=== PATIENT | male | born 1985 | race American Indian/Alaskan Native ===

== ENCOUNTER 2016-10-09 14:50 | Emergency (ER) | payer SELFPAY ==
[2016-10-09 19:43] VITALS: BP 133/70
[2016-10-09] MEDS ORDERED: DELTASONE PO ONE (19:50)
--- NOTE | 2016-10-09 19:52 | Emergency Department Report ---
HPI - General Chief Complaint: Extremity Problem,Nontraumatic Time Seen by Provider: 10/09/16 19:44 - HPI HPI: Patient is a 31-year-old male who presents to ED complaining of left arm rash 4 days. Patient states about 4 days ago and noticed a rash on his left lower arm area while he was at work. Patient states because of work he has not been able to come in to get it checked. Patient states rash is itching has gotten worse over the next couple days. Patient denies fevers/chills/nausea/vomiting/abdominal pain/shortness of breath/ chest pain/inability to move arms ED Past Medical Hx - Past Medical History Previous Medical History?: No - Surgical History Additional Surgical History: Surgery on right leg as a child - injury - Social History Smoking Status: Current Every Day Smoker Substance Use Type: Alcohol - Medications Home Medications: Home Medications Medication Instructions Recorded Confirmed Last Taken Type Diphenhydramine HCl [Benadryl 25 mg PO DAILY #20 tablet 10/09/16 Unknown Rx Allergy TAB] Neomy/Baci/Polymyx/Hc Top Oint 1 applic TP TID #1 tube 10/09/16 Unknown Rx [Cortisporin TOPICAL Oint] ED Review of Systems ROS: Stated complaint: LEFT ARM BROKE OUT Other details as noted in HPI Constitutional: denies: chills, fever Eyes: denies: eye pain, eye discharge, vision change ENT: denies: ear pain, throat pain, dental pain, hearing loss Respiratory: SOB at rest. denies: cough, shortness of breath, wheezing Cardiovascular: denies: chest pain, palpitations Endocrine: no symptoms reported Gastrointestinal: denies: abdominal pain, nausea, vomiting, diarrhea, constipation Genitourinary: denies: urgency, dysuria Musculoskeletal: denies: back pain, joint swelling, arthralgia Skin: denies: rash, lesions Neurological: denies: headache, weakness, numbness, paresthesias, confusion, abnormal gait, vertigo Psychiatric: denies: anxiety, depression Hematological/Lymphatic: denies: easy bleeding, easy bruising, swollen glands Physical Exam - Physical Exam Vital Signs: Vital Signs 10/09/16 10/09/16 15:24 19:42 Temperature 98.2 F Pulse Rate 55 L 74 Respiratory 18 16 Rate Blood Pressure 128/89 Blood Pressure 133/70 [Left] O2 Sat by Pulse 100 95 Oximetry Physical Exam: GENERAL: Alert and oriented x3, no apparent distress, Normal Gait, atraumatic. HEAD: Head is normocephalic and a-traumatic. EYES: Extra ocular muscles are intact. Pupils are equal, round, and reactive to light and accommodation. EARS: symetrical, atraumatic, non tender. NOSE: Nose symetrical, Nontender,Nares appeared normal. MOUTH:Mouth is well hydrated and without lesions. Tonsils nonerythematous or swollen, Uvula midline, Tongue not elevated. Mucous membranes are moist. ways. NECK: Supple. Non edematous, No carotid bruits. No lymphadenopathy or thyromegaly. LUNGS: Symetrical with respiration, No wheezing, no rales or crackles, CTAB. HEART: S1, S2 present, regular rate and rhythm without murmur, no rubs, no gallops. ABDOMEN: No organomegaly was noted,Positive bowel sounds, soft, and non- distended. . Nontender to palpation on all Quadrants, NO CVA tenderness. EXTREMITIES/MUSCULOSKELETAL: No cyanosis, clubbing, rash, lesions or edema. Full ROM bilaterally. UE/LE Pulses 2+ bilaterally. LE and UE 5+ strength bilaterally NEUROLOGIC: No focal Deficit, Cranial nerves II through XII are grossly intact. No loss of sensation PSYCHIATRIC: Mood is congruent with affect, denies suicidal or homicidal ideations. SKIN: Warm and dry, No lesions, diffused maculo papular rash on left medial to posterior left arm. ED Course Vital Signs 10/09/16 10/09/16 15:24 19:42 Temperature 98.2 F Pulse Rate 55 L 74 Respiratory 18 16 Rate Blood Pressure 128/89 Blood Pressure 133/70 [Left] O2 Sat by Pulse 100 95 Oximetry ED Medical Decision Making - Medical Decision Making 31-year-old male presents with a rash possibly contact dermatitis. ED course: Patient received 20 mg of prednisone. Patient to be discharged home with Corticosporin ointment and Benadryl. See prescription. Discussed patient to follow up with primary care physician as soon as possible. Vital signs stable. Patient is not in any acute or respiratory distress. Discussed patient to follow up with mercury cracking tester as referred. Discussed the patient to use medication as prescribed. Discussed symptoms worsen to return to ED. Critical care attestation.: If time is entered above; I have spent that time in minutes in the direct care of this critically ill patient, excluding procedure time. ED Disposition Clinical Impression: Rash and nonspecific skin eruption, Allergic dermatitis Disposition: DISCHARGED TO HOME OR SELFCARE Is pt being admited?: No Does the pt Need Aspirin: No Condition: Stable Instructions: Contact Dermatitis (ED), Urticaria (ED) Additional Instructions: Follow-up which her primary care physician. Follow-up with mercury cracking tester as referred if rash does not resolve within 7 days. Take medication as prescribed. Prescriptions: Diphenhydramine HCl [Benadryl Allergy TAB] 25 mg PO DAILY #20 tablet Neomy/Baci/Polymyx/Hc Top Oint [Cortisporin TOPICAL Oint] 1 applic TP TID #1 tube Referrals: PRIMARY CAREMD [Primary Care Provider] - 3-5 Days RADHA SANCHEZ MD [Referring] - 3-5 Days YASSINE CORNEJO MD [Staff Physician] - 3-5 Days TOM BAL MD [Staff Physician] - 3-5 Days SHAKA BUNCH MD [Staff Physician] - 3-5 Days [facility]Outside[facility] - 3-[address] [facility] [Outside] - 3-5 Days Forms: Work/School Release Form(ED) Time of Disposition: 20:08
== END 2016-10-09 20:32 | disposition home or self-care (01) ==
LOC: ED 14:50
DX: L23.9 Allergic contact dermatitis, unspecified cause (principal); F17.200 Nicotine dependence, unspecified, uncomplicated
CPT/HCPCS: 99282; J7512

== ENCOUNTER 2016-10-13 22:42 | Emergency (ER) | payer SELFPAY ==
[2016-10-14] MEDS ORDERED: NACL 0.9% 1000 ML 1,000 ML IV ONE (00:35)
[2016-10-14] MEDS ORDERED: ZOFRAN IV ONE (00:35)
[2016-10-14 00:36] LABS: Basophils % (Auto) 0.5 % (0.0-1.8); Eosinophils % (Auto) 0.1 % (0.0-4.3); Hematocrit 43.3 % (35.5-45.6); Hemoglobin 14.1 gm/dl (11.8-15.2); Mean Corpuscular HGB Conc 33 % (32-34); Mean Corpuscular Hemoglobin 29 pg (28-32); Mean Corpuscular Volume 89 fl (84-94); Platelet Count 315 K/mm3 (140-440); Red Blood Count 4.88 M/mm3 (3.65-5.03); Red Cell Distribution Width 14.5 % (13.2-15.2); White Blood Count 15.7 K/mm3 (4.5-11.0)
--- NOTE | 2016-10-14 00:39 | Emergency Department Report ---
HPI - General Chief Complaint: Abdominal Pain Time Seen by Provider: 10/14/16 00:07 - HPI HPI: This is a 31-year-old Afro[place] Citizen male who presents to the emergency department by EMS from home with complaint of nausea and vomiting and some right -sided flank and back pain since this morning. Patient says he has had about 15 -20 episodes of vomiting and is unable to keep down food or liquids. He denies any fever, abdominal pain, dysuria, constipation or diarrhea. No recent travel or sick contacts at home. 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 He does not have a primary care doctor. He has not taken anything for symptoms prior to presentation. ED Past Medical Hx - Past Medical History Previous Medical History?: Yes Hx Kidney Stones: No (one kidney functioning) - Surgical History Past Surgical History?: Yes Additional Surgical History: Surgery on right leg as a child - injury - Social History Smoking Status: Current Every Day Smoker Substance Use Type: None - Medications Home Medications: Home Medications Medication Instructions Recorded Confirmed Last Taken Type Ondansetron [Zofran Odt] 4 mg PO Q8HR PRN #10 tab.rapdis 10/14/16 Unknown Rx ED Review of Systems ROS: Stated complaint: NAUSEA, VOMITING Other details as noted in HPI Comment: All other systems reviewed and negative Constitutional: denies: chills, fever Eyes: denies: eye pain, eye discharge, vision change ENT: denies: ear pain, throat pain Respiratory: denies: cough, shortness of breath, wheezing Cardiovascular: denies: chest pain, palpitations Gastrointestinal: nausea, vomiting Genitourinary: denies: urgency, dysuria Musculoskeletal: denies: back pain, joint swelling, arthralgia Skin: denies: rash, lesions Neurological: denies: headache, weakness, paresthesias Physical Exam - Physical Exam Vital Signs: Vital Signs 10/13/16 22:55 Temperature 98.6 F Pulse Rate 86 Respiratory 16 Rate Blood Pressure 99/77 O2 Sat by Pulse 97 Oximetry Physical Exam: GENERAL: The patient is well-developed well-nourished. HEENT: Normocephalic. Atraumatic. Extraocular motions are intact. Patient has moist mucous membranes. Pupils equal reactive to light bilaterally. NECK: Supple. Trachea is midline. CHEST/LUNGS: Clear to auscultation. There is no respiratory distress noted. HEART/CARDIOVASCULAR: Regular. There is no tachycardia. There is no gallop rub or murmur. ABDOMEN: Abdomen is soft, nontender. Patient has normal bowel sounds. There is no abdominal distention. SKIN: There is no rash. There is no edema. There is no diaphoresis. NEURO: The patient is awake, alert, and oriented. The patient is cooperative. The patient has no focal neurologic deficits. The patient has normal speech. MUSCULOSKELETAL: There is no tenderness or deformity. There is no limitation range of motion. There is no evidence of acute injury. ED Course Vital Signs 10/13/16 22:55 Temperature 98.6 F Pulse Rate 86 Respiratory 16 Rate Blood Pressure 99/77 O2 Sat by Pulse 97 Oximetry ED Medical Decision Making - Lab Data Result diagrams: 10/14/16 00:21 10/14/16 00:21 - Medical Decision Making 31-year-old male presents to the emergency department with one-day history of nausea and vomiting and some pain to the right mid back. There is no problem with bowel or bladder, numbness or paresthesias or any neurological deficits. There is no midline tenderness to palpation. Patient does not appear to have any of the emergent back condition such as cauda equina, epidural abscess or cord compression syndrome. Patient's labs show some mild dehydration with 20 ketones in the urine but otherwise the labs are unremarkable. Patient was given a dose of Zofran, 1 L of IV fluid resuscitation and upon reevaluation the patient says he is feeling much better. Patient was able to keep down fluid without any further nausea or vomiting. He no longer has any pain in the back without any pain medication given. He'll be discharged home with a referral for primary care, Herbert for nausea and encouragement for increased oral rehydration. He will return to the ER with any worsening of symptoms or any acute distress. - Differential Diagnosis gastroenteritis, food poisoning, UTI, colitis Critical Care Time: No Critical care attestation.: If time is entered above; I have spent that time in minutes in the direct care of this critically ill patient, excluding procedure time. ED Disposition Clinical Impression: Dehydration Nausea & vomiting Qualifiers: Vomiting type: unspecified Vomiting Intractability: non-intractable Qualified Code(s): R11.2 - Nausea with vomiting, unspecified Disposition: DISCHARGED TO HOME OR SELFCARE Is pt being admited?: No Does the pt Need Aspirin: No Condition: Stable Instructions: Acute Nausea and Vomiting (ED), Dehydration (ED) Additional Instructions: Please increase your oral rehydration. Return to the emergency department with any worsening of her symptoms, intractable vomiting, intractable fever, or any acute distress. Prescriptions: Ondansetron [Zofran Odt] 4 mg PO Q8HR PRN #10 tab.rapdis PRN Reason: Nausea Referrals: PRIMARY CAREMD [Primary Care Provider] - 3-5 Days JENNIFER LOPES MD [Staff Physician] - 3-5 Days [facility] [Outside] - 3-5 Days Time of Disposition: 03:38
[2016-10-14 00:49] LABS: Alanine Aminotransferase 21 units/L (7-56); Albumin 4.5 g/dL (3.9-5); Albumin/Globulin Ratio 1.3 %; Alkaline Phosphatase 135 units/L (35-129); Anion Gap 21 mmol/L; BUN/Creatinine Ratio 18.33; Bilirubin,Total 0.8 mg/dL (0.1-1.2); Blood Urea Nitrogen 22 mg/dL (9-20); Calcium 9.3 mg/dL (8.4-10.2); Carbon Dioxide 22 mmol/L (22-30); Glucose 74 mg/dL (75-100); Lipase 25 units/L (13-60); Potassium 4.1 mmol/L (3.6-5.0); Sodium 134 mmol/L (137-145); Total Protein 8.1 g/dL (6.3-8.2)
[2016-10-14 02:17] LABS: Bilirubin,Urine NEG (Negative); Blood,Urine NEG (Negative); Ketones,Urine 20 mg/dL (Negative); Leukocyte Esterase,Urine TR (Negative); Mucus,Urine FEW /HPF; Nitrite,Urine NEG (Negative); Protein,Urine <15 mg/dL mg/dL (Negative); Urobilinogen,Urine < 2.0 mg/dL (<2.0)
[2016-10-14 03:07] VITALS: BP 103/70
== END 2016-10-14 03:49 | disposition home or self-care (01) ==
LOC: ED 22:42
DX: E86.0 Dehydration (principal); R11.2 Nausea with vomiting, unspecified; M54.9 Dorsalgia, unspecified; R10.9 Unspecified abdominal pain; F17.200 Nicotine dependence, unspecified, uncomplicated; Z98.890 Other specified postprocedural states; Z79.899 Other long term (current) drug therapy
CPT/HCPCS: 36415; 80053; 81001; 83690; 85025; 96361; 96374; 99284; J2405; J7030